=== PATIENT | female | born 1945 | race Caucasian/White ===

== ENCOUNTER 2018-01-05 10:21 | Outpatient (CLI) | payer OTHER | END 2018-01-05 10:26 | disposition home or self-care (01) | LOC: RAD 10:21 | DX: H25.011 Cortical age-related cataract, right eye (principal) ==

== ENCOUNTER 2018-10-19 10:45 | Outpatient (CLI) | payer OTHER | END 2018-10-19 10:51 | disposition home or self-care (01) | LOC: MAMO-SONO 10:45 | DX: N63.11 Unspecified lump in the right breast, upper outer quadrant (principal); Z12.31 Encounter for screening mammogram for malignant neoplasm of breast; Z87.898 Personal history of other specified conditions ==

== ENCOUNTER → 2019-03-24 | Outpatient (CLI) | payer OTHER ==
[~2019-03-24] VITALS: Ht 152.4 cm; Wt 47.6 kg
== END | disposition home or self-care (01) ==
LOC: OFIC 805 07:32
DX: J34.2 Deviated nasal septum (principal); J31.0 Chronic rhinitis; H61.23 Impacted cerumen, bilateral

== ENCOUNTER 2020-10-17 08:40 | Outpatient (CLI) | payer OTHER | END 2020-10-17 08:58 | disposition home or self-care (01) | LOC: MAMO-SONO 08:40 | PROVIDERS: ATTEND Internal Medicine Cardiovascular Disease | DX: Z12.31 Encounter for screening mammogram for malignant neoplasm of breast (principal); Z87.898 Personal history of other specified conditions; N63.11 Unspecified lump in the right breast, upper outer quadrant ==

== ENCOUNTER 2020-10-20 11:04 | Outpatient (CLI) | payer OTHER | END 2020-10-20 11:17 | disposition home or self-care (01) | LOC: MRI 11:04 | PROVIDERS: ATTEND Internal Medicine Cardiovascular Disease | DX: R10.9 Unspecified abdominal pain (principal) | CPT/HCPCS: 74183; A9575; 74181 ==

== ENCOUNTER 2023-01-19 14:12 | Emergency (ER) | payer OTHER ==
[~2023-01-19] VITALS: Ht 162.6 cm; Wt 45.4 kg
== END 2023-01-19 18:26 | disposition home or self-care (01) ==
LOC: ER 14:12
DX: J06.9 Acute upper respiratory infection, unspecified (principal); Z20.822 Contact with and (suspected) exposure to COVID-19; Z88.0 Allergy status to penicillin; Z88.8 Allergy status to other drugs, medicaments and biological substances

== ENCOUNTER 2023-07-12 07:16 | Emergency (ER) | payer OTHER ==
[~2023-07-12] VITALS: Ht 152.4 cm; Wt 46.3 kg
[2023-07-12 09:13] LABS: HEMATOCRIT 41.5 % (36.0-45.00); HEMOGLOBIN 14.3 g/dL (12.0-15.00); MEAN CELL VOLUME 93.1 fL (80.00-100.00); MEAN CORPUSCULAR HGB CONC 34.4 g/dl (32.0-36.0); PLATELET COUNT 214 K/uL (150-450); RED BLOOD COUNT 4.46 M/uL (4.00-6.00); RED CELL DISTRIBUTION WIDTH 12.9 % (11.5-14.5)
== END 2023-07-12 11:00 | disposition home or self-care (01) ==
LOC: ER 07:16
PROVIDERS: General Practice
DX: J02.9 Acute pharyngitis, unspecified (principal); R53.81 Other malaise; Z20.822 Contact with and (suspected) exposure to COVID-19; Z88.8 Allergy status to other drugs, medicaments and biological substances
CPT/HCPCS: 36415; 96372; 99282; J1100

== ENCOUNTER 2024-03-27 06:40 | Emergency (ER) | payer OTHER ==
[~2024-03-27] VITALS: Ht 165.1 cm; Wt 47.6 kg
[2024-03-27] MEDS ORDERED: KETOROLAC TROMETHAMINE 30 MG VIAL IM ONE (08:45)
[2024-03-27 09:21] LABS: HEMATOCRIT 40.8 % (36.0-45.00); HEMOGLOBIN 13.6 g/dL (12.0-15.00); MEAN CELL VOLUME 97.5 fL (80.00-100.00); MEAN CORPUSCULAR HEMOGLOBIN 32.6 pg (27.00-32.0); MEAN CORPUSCULAR HGB CONC 33.5 g/dl (32.0-36.0); PLATELET COUNT 249 K/uL (150-450); RED BLOOD COUNT 4.18 M/uL (4.00-6.00); RED CELL DISTRIBUTION WIDTH 13.6 % (11.5-14.5)
[2024-03-27 09:48] LABS: ALBUMIN 3.9 gm/dL (3.4-5.0); BILIRUBIN TOTAL 0.47 mg/dL (0.3-1.2); CALCIUM 9.3 mg/dL (8.5-10.1); CREATININE SERUM 0.7 mg/dL (0.55-1.02); GFR 80.31; GLOBULINA 3.9 G/DL (2.4-3.5); POTASSIUM 3.42 mEq/L (3.5-5.1); TOTAL PROTEIN 7.8 gm/dL (6.4-8.2)
[2024-03-27] MEDS ORDERED: KETO10TA2 PO (10:22)
== END 2024-03-27 10:30 | disposition home or self-care (01) ==
LOC: ER 06:42
PROVIDERS: General Practice
DX: M79.604 Pain in right leg (principal); W18.30XA Fall on same level, unspecified, initial encounter; Z88.9 Allergy status to unspecified drugs, medicaments and biological substances
CPT/HCPCS: 36415; 70450; 72125; 73521; 96372; 99284; J1885

== ENCOUNTER 2024-06-14 01:05 | Emergency (ER) | payer OTHER ==
[~2024-06-14] VITALS: Ht 149.9 cm; Wt 45.4 kg
[~2024-06-14 01:05] MED LIST: KETO10TA2 PO
[2024-06-14 01:22] VITALS: BP 160/80; O2SAT 97
[2024-06-14] MEDS ORDERED: CIPROFLOXACIN IN 5 % DEXTROSE 400 MG/200 ML PIGGYBAG IV STA (02:04)
[2024-06-14] MEDS ORDERED: KETOROLAC TROMETHAMINE 10 MG TABLET PO STA (02:07)
[2024-06-14] MEDS ORDERED: CIPROFLOXACIN IN 5 % DEXTROSE 400 MG/200 ML PIGGYBAG IV ONE (02:09)
[2024-06-14] MEDS ORDERED: KETOROLAC TROMETHAMINE 10 MG TABLET PO ONE (02:13)
[2024-06-14] MEDS ORDERED: MUPIROCIN1 G1 TOP (03:31)
[2024-06-14] MEDS ORDERED: CIPRO500 MG PO (03:31)
[2024-06-14] MEDS ORDERED: KETO10TA2 PO (03:31)
== END 2024-06-14 05:33 | disposition home or self-care (01) ==
LOC: ER 01:05
DX: S30.810A Abrasion of lower back and pelvis, initial encounter (principal); L08.9 Local infection of the skin and subcutaneous tissue, unspecified; Z88.0 Allergy status to penicillin; Z88.6 Allergy status to analgesic agent; Z88.2 Allergy status to sulfonamides
CPT/HCPCS: 96365; 99282; J0744